=== PATIENT | female | born 1950 | race Caucasian/White ===

== ENCOUNTER → 2024-05-21 08:36 | Outpatient (REF) | payer OTHER, SELFPAY ==
--- NOTE | 2024-05-21 07:32 | PN.DIAED06 ---
Meal Plans - Regular
- Meal Plan
Diabetic Meal Plan Name: 1800 calories
Breakfast - Total Carbohydrate (grams): 45
Breakfast - Starch Carbohydrate: 0
Breakfast - Fruit Carbohydrate: 0
Breakfast - Milk Carbohydrate: 0
Breakfast - Nonstarchy Vegetables: Yes
Breakfast - Meat/Protein: 1
Breakfast - Fat: 2
Morning Snack - Total Carbohydrate (grams): 15
Morning Snack - Starch Carbohydrate: 0
Morning Snack - Fruit Carbohydrate: 0
Morning Snack - Milk Carbohydrate: 0
Morning Snack - Nonstarchy Vegetables: Yes
Morning Snack - Meat/Protein: 0.5
Morning Snack - Fat: 0
Lunch - Total Carbohydrate (grams): 45
Lunch - Starch Carbohydrate: 0
Lunch - Fruit Carbohydrate: 0
Lunch - Milk Carbohydrate: 0
Lunch - Nonstarchy Vegetables: Yes
Lunch - Meat/Protein: 3
Lunch - Fat: 1
Afternoon Snack - Total Carbohydrate (grams): 15
Afternoon Snack - Starch Carbohydrate: 0
Afternoon Snack - Fruit Carbohydrate: 0
Afternoon Snack - Milk Carbohydrate: 0
Afternoon Snack - Nonstarchy Vegetables: Yes
Afternoon Snack - Meat/Protein: 0.5
Afternoon Snack - Fat: 0
Dinner - Total Carbohydrate (grams): 45
Dinner - Starch Carbohydrate: 0
Dinner - Fruit Carbohydrate: 0
Dinner - Milk Carbohydrate: 0
Dinner - Nonstarchy Vegetables: Yes
Dinner - Meat/Protein: 3
Dinner - Fat: 2
Evening Snack - Total Carbohydrate (grams): 15
Evening Snack - Starch Carbohydrate: 0
Evening Snack - Fruit Carbohydrate: 0
Evening Snack - Milk Carbohydrate: 0
Evening Snack - Nonstarchy Vegetables: Yes
Evening Snack - Meat/Protein: 0
Evening Snack - Fat: 0
--- NOTE | 2024-05-21 10:52 | PN.DIAED02 ---
Referral
Referred For: Diabetes Self-Management Training
PHI Release Authorization Form Signed: Yes
Care Plan
- Education Needs
Recommended Diabetes Training Program based on assessment: Individual Appointment
- Plan of Care
Plan of Care:
Met with Huma for a 'holdover' appointment. A1C 9.1% (05/13/2024). Huma has a strong family hx of T2DM both parents. She was recently started on Metformin 500mg BID by her PCP and no other meds with the hopes that she would sign up for
diabetes education classes.
Huma brought with her a [employer] Style igor glucometer that was prescribed by her PCP. Instructions were given on proper testing technique, sites, pattern and expected results. Huma stated that she was comfortable wit using the meter to check her
blood sugars.
Reviewed macronutrients and role each plays in glucose, Discussed reading food labels and to initially measure some foods for the correct portion sizes. Provided with 1800 kobe ADA meal plan, with a morning and afternoon snack of 15 gm CHO. Handout
on snack options given along with handout on testing pattern and expected results. She is aware to add protein to each meal and snack. She does not exercise due to her busy work schedule and feels that she doesn't need tje exercise because her job
is physically demanding and keep her active by moving around.
Huma states that her problem is not weight but portion control when she is eating. Discussed benefits of exercise and encouraged her to join a fitness program, remain active, maintain her monitoring schedule an keep a glucose log that she will
bring with her 1st day of class.
Huma signed up for outpt DSME classes and Phone number provided for follow up questions.
== END ==
LOC: DES 08:36
PROVIDERS: ATTENDING PHYSICIAN Family Medicine
DX: E11.65 Type 2 diabetes mellitus with hyperglycemia (principal)
CPT/HCPCS: 99078

== ENCOUNTER → 2024-10-07 07:56 | Outpatient (REF) | payer OTHER, SELFPAY | LOC: HWRAD 07:56 | PROVIDERS: ATTENDING PHYSICIAN Specialist; FAMILY PHYSICIAN Family Medicine | DX: R79.89 Other specified abnormal findings of blood chemistry (principal) | CPT/HCPCS: 76770 ==

== ENCOUNTER → 2024-11-01 08:32 | Outpatient (REF) | payer OTHER, SELFPAY | LOC: WDC 08:32 | PROVIDERS: ATTENDING PHYSICIAN Obstetrics & Gynecology; FAMILY PHYSICIAN Family Medicine | DX: Z12.31 Encounter for screening mammogram for malignant neoplasm of breast (principal) | CPT/HCPCS: 77063; 77067 ==